=== PATIENT | female | born 1960 | race Caucasian/White ===

== ENCOUNTER 2017-08-27 19:45 | Emergency (ER) | payer OTHER ==
[2017-08-27] MEDS ORDERED: Albuterol 0.083% 2.5 MG/3 ML Neb Soln NEB ONE (21:31)
[2017-08-27] MEDS ORDERED: Levofloxacin 250 MG Tab PO ONE (22:29)
[2017-08-27] MEDS ORDERED: Levofloxacin 500 MG Tab ONE (22:47)
--- NOTE | 2017-08-27 22:54 | EDM.PDOC ---
ED HPI GENERAL MEDICAL PROBLEM - General Chief Complaint: Respiratory Problem Stated Complaint: SOB Time Seen by Provider: 08/27/17 20:20 Source of Information: Reports: Patient History Limitations: Reports: No Limitations - History of Present Illness INITIAL COMMENTS - FREE TEXT/NARRATIVE: pt has been very sob for the last 2 days. Tonight when she was walking up the ramp to the hosp she just could not catch her breath. She does have a inhaler at home that she uses. Onset: Gradual, Other (last 2 days. ) Duration: Hour(s):, Getting Worse Location: Reports: Chest Associated Symptoms: Reports: Shortness of Breath - Related Data Allergies Allergy/AdvReac Type Severity Reaction Status Date / Time cephalexin [From Keflex] Allergy Nausea and Verified 08/27/17 20:33 Vomiting lisinopril Allergy Edema Verified 08/27/17 20:33 nitrofurantoin Allergy Nausea and Verified 08/27/17 20:33 [From Macrobid] Vomiting Home Meds: Home Meds Losartan [Cozaar] 25 mg PO DAILY 08/27/17 [History] Potassium 99 mg PO DAILY 08/27/17 [History] amLODIPine [Norvasc] 2.5 mg PO DAILY 08/27/17 [History] Past Medical History HEENT History: Reports: Impaired Vision Cardiovascular History: Reports: Hypertension Respiratory History: Reports: Bronchitis, Recurrent, Pneumonia, Recurrent Other Respiratory History: ALLERGIES CAUSE LUNG ISSUES Other Genitourinary History: 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: Musculoskeletal History: Reports: Arthritis - Past Surgical History GI Surgical History: Reports: Cholecystectomy, Small Bowel Other GI Surgeries/Procedures: 12 INCHES OF SMALL INTESTINES REMOVED Social & Family History - Tobacco Use Smoking Status *Q: Former Smoker Used Tobacco, but Quit: Yes Month/Year Tobacco Last Used: 26 YEARS AGO - Caffeine Use Caffeine Use: Reports: Coffee - Recreational Drug Use Recreational Drug Use: No ED ROS GENERAL - Review of Systems Review Of Systems: See Below Constitutional: Reports: No Symptoms HEENT: Reports: No Symptoms Respiratory: Reports: Shortness of Breath, Wheezing, Cough, Other ( chest feels tight. ) Cardiovascular: Reports: No Symptoms, Other (heart rate was greater than 100. ) Endocrine: Reports: No Symptoms GI/Abdominal: Reports: No Symptoms : Reports: No Symptoms Musculoskeletal: Reports: No Symptoms Skin: Reports: No Symptoms ED EXAM, GENERAL - Physical Exam Exam: See Below Free Text/Narrative:: pt has had a cough which has not been productive and she has been very sob. She has not had a fever. She is very sob with any activity. Exam Limited By: No Limitations General Appearance: Alert, Mild Distress, Other (pupils are equal and reactive. ) Ears: Normal TMs Nose: Normal Inspection Throat/Mouth: Normal Inspection Head: Atraumatic Neck: Normal Inspection Respiratory/Chest: Decreased Breath Sounds, Crackles Cardiovascular: Regular Rate, Rhythm, Tachycardia GI/Abdominal: Soft, Non-Tender (Female) Exam: Deferred Rectal (Female) Exam: Deferred Back Exam: Normal Inspection Extremities: Pedal Edema, Other ( trace edema,) Neurological: Alert, Normal Cognition Psychiatric: Normal Affect Course - Vital Signs Last Recorded V/S: Last Vital Signs Temp 37.0 C 08/27/17 20:21 Pulse 70 08/27/17 22:23 Resp 16 08/27/17 22:23 BP 165/78 H 08/27/17 22:23 Pulse Ox 94 L 08/27/17 22:23 - Orders/Labs/Meds Orders: Active Orders 24 hr Category Date Time Status EKG Documentation Completion [RC] ASDIRECTED Care 08/27/17 20:33 Active RT Aerosol Therapy [RC] ASDIRECTED Care 08/27/17 21:31 Active Chest 2V [CR] Stat Exams 08/27/17 20:29 Taken Chest wo Cont [CT] Stat Exams 08/27/17 21:50 Taken EKG 12 Lead [EK] Routine Ther 08/27/17 20:33 Ordered Labs: Laboratory Tests 08/27/17 08/27/17 08/27/17 Range/Units 20:50 20:50 20:50 WBC 12.5 H (4.5-11.0) K/uL RBC 5.01 (3.30-5.50) M/uL Hgb 13.5 (12.0-15.0) g/dL Hct 40.9 (36.0-48.0) % MCV 82 (80-98) fL MCH 27 (27-31) pg MCHC 33 (32-36) % Plt Count 316 (150-400) K/uL Neut % (Auto) 64 (36-66) % Lymph % (Auto) 27 (24-44) % [place] % (Auto) 7 H (2-6) % Eos % (Auto) 2 (2-4) % Baso % (Auto) 1 (0-1) % D-Dimer, Quantitative 218 (0.0-400.0) ng/mL Sodium 144 (140-148) mmol/L Potassium 3.6 (3.6-5.2) mmol/L Chloride 107 (100-108) mmol/L Carbon Dioxide 25 (21-32) mmol/L Anion Gap 12.5 (5.0-14.0) mmol/L BUN 13 (7-18) mg/dL Creatinine 0.8 (0.6-1.0) mg/dL Est Cr Clr Drug Dosing 71.76 mL/min Estimated GFR (MDRD) > 60 (>60) Glucose 117 H (74-106) mg/dL Calcium 9.0 (8.5-10.1) mg/dL Total Bilirubin 0.6 (0.2-1.0) mg/dL AST 16 (15-37) U/L ALT 27 (12-78) U/L Alkaline Phosphatase 117 H (46-116) U/L C-Reactive Protein (0.0-0.3) mg/dL NT-Pro-B Natriuret Pep (5-125) pg/mL Total Protein 7.2 (6.4-8.2) g/dL Albumin 3.6 (3.4-5.0) g/dL Globulin 3.6 H (2.3-3.5) g/dL Albumin/Globulin Ratio 1.0 L (1.2-2.2) 08/27/17 08/27/17 Range/Units 21:34 21:48 WBC (4.5-11.0) K/uL RBC (3.30-5.50) M/uL Hgb (12.0-15.0) g/dL Hct (36.0-48.0) % MCV (80-98) fL MCH (27-31) pg MCHC (32-36) % Plt Count (150-400) K/uL Neut % (Auto) (36-66) % Lymph % (Auto) (24-44) % [place] % (Auto) (2-6) % Eos % (Auto) (2-4) % Baso % (Auto) (0-1) % D-Dimer, Quantitative (0.0-400.0) ng/mL Sodium (140-148) mmol/L Potassium (3.6-5.2) mmol/L Chloride (100-108) mmol/L Carbon Dioxide (21-32) mmol/L Anion Gap (5.0-14.0) mmol/L BUN (7-18) mg/dL Creatinine (0.6-1.0) mg/dL Est Cr Clr Drug Dosing mL/min Estimated GFR (MDRD) (>60) Glucose (74-106) mg/dL Calcium (8.5-10.1) mg/dL Total Bilirubin (0.2-1.0) mg/dL AST (15-37) U/L ALT (12-78) U/L Alkaline Phosphatase (46-116) U/L C-Reactive Protein 1.30 H (0.0-0.3) mg/dL NT-Pro-B Natriuret Pep 21 (5-125) pg/mL Total Protein (6.4-8.2) g/dL Albumin (3.4-5.0) g/dL Globulin (2.3-3.5) g/dL Albumin/Globulin Ratio (1.2-2.2) Meds: Medications Discontinued Medications Generic Name Dose Route Start Last Admin Trade Name [place] PRN Reason Stop Dose Admin Albuterol 2.5 mg 08/27/17 21:31 08/27/17 21:37 Proventil Neb Soln NEB 08/27/17 21:32 2.5 mg ONETIME ONE Administration Levofloxacin 500 mg 08/27/17 22:29 08/27/17 22:51 Levaquin PO 08/27/17 22:30 Not Given ONETIME ONE Levofloxacin Confirm 08/27/17 22:47 08/27/17 22:51 Levaquin Administered 08/27/17 22:48 500 mg Dose Administration 500 mg .ROUTE .STK-MED ONE - Re-Assessments/Exams Free Text/Narrative Re-Assessment/Exam: 08/27/17 23:22 chest shows a bilateral infiltrat.e The cat scan shows mild copd. She is a nonsmoker. Her wbc is mildly elevated. Her ddimer was neg. Departure - Departure Time of Disposition: 22:51 Disposition: Home, Self-Care 01 Condition: Fair Clinical Impression: Bilateral pneumonia, Chronic lung disease - Discharge Information Instructions: Community-Acquired Pneumonia, Adult Referrals: PCP,None [Primary Care Provider] - Forms: ED Department Discharge Care Plan Goals: push fluids, cool mist humidifier, use inhaler 2 puffs qid-- has this at home, levoquin 500mg daily, appt with usual Dr In 1 week. to recheck pneumonia, ssend a copy odf the disc with the pt and a copy of the cat scan report. - My Orders Last 24 Hours: My Active Orders 08/27/17 20:29 Chest 2V [CR] Stat 08/27/17 20:33 EKG Documentation Completion [RC] ASDIRECTED EKG 12 Lead [EK] Routine 08/27/17 21:31 RT Aerosol Therapy [RC] ASDIRECTED 08/27/17 21:50 Chest wo Cont [CT] Stat - Assessment/Plan Last 24 Hours: My Active Orders 08/27/17 20:29 Chest 2V [CR] Stat 08/27/17 20:33 EKG Documentation Completion [RC] ASDIRECTED EKG 12 Lead [EK] Routine 08/27/17 21:31 RT Aerosol Therapy [RC] ASDIRECTED 08/27/17 21:50 Chest wo Cont [CT] Stat
--- NOTE | 2017-08-28 09:45 | CR ---
Chest 2V FINDINGS: The heart and vascular structures are normal in appearance. No infiltrates or effusions are demonstrated. The skeletal structures are unremarkable. IMPRESSION: Negative exam.
== END 2017-08-27 23:27 | disposition home or self-care (01) ==
LOC: JP.ED 19:45
DX: J18.9 Pneumonia, unspecified organism (principal); J98.4 Other disorders of lung; I10 Essential (primary) hypertension; Z87.891 Personal history of nicotine dependence; Z88.1 Allergy status to other antibiotic agents; Z88.8 Allergy status to other drugs, medicaments and biological substances; Z79.899 Other long term (current) drug therapy
CPT/HCPCS: 36415; 71046; 71250; 80053; 83880; 85025; 85379; 86140; 93005; 94640; 99285; A9270

== ENCOUNTER 2022-11-05 13:22 | Emergency (ER) | payer MEDICARE, OTHER ==
[2022-11-05] MEDS ORDERED: Ondansetron 4 MG/2 ML SDV IVPUSH ONE (15:28)
[2022-11-05] MEDS ORDERED: Sodium Chloride 0.9% 1,000 ML IV SCH (15:30)
[2022-11-05 15:42] LABS: BASOPHILS ABSOLUTE AUTO 0.04 K/uL (0.00-0.10); BASOPHILS PERCENT AUTO 0.3 % (0.1-1.3); EOSINOPHILS PERCENT AUTO 0.2 % (0.0-5.4); HEMATOCRIT 42.7 % (34.3-46.0); HEMOGLOBIN 14.7 g/dL (11.2-15.5); IMMATURE GRAN ABSOLUTE AUTO 0.06 K/uL (0.00-0.23); IMMATURE GRAN PERCENT AUTO 0.5 % (0.0-0.7); LYMPHOCYTES ABSOLUTE AUTO 0.53 K/uL (0.8-3.3); LYMPHOCYTES PERCENT AUTO 4.3 % (11.4-47.7); MEAN CORPUSCULAR HEMOGLOBIN 29.2 pg (31.6-35.5); MEAN CORPUSCULAR HGB CONC 34.4 g/dL (31.6-35.5); MEAN CORPUSCULAR VOLUME 84.7 fL (81.4-99.0); MONOCYTES ABSOLUTE AUTO 0.69 K/uL (0.20-0.90); MONOCYTES PERCENT AUTO 5.6 % (3.3-12.6); NEUTROPHILS ABSOLUTE AUTO 10.95 K/uL (1.0-7.6); NEUTROPHILS PERCENT AUTO 89.1 % (40.0-78.1); PLATELET COUNT,PLT 204 K/uL (130-375); RED BLOOD CELL COUNT 5.04 M/uL (3.77-5.24); WHITE BLOOD CELL COUNT,WBC 12.3 K/uL (3.2-11.0)
[2022-11-05 15:44] LABS: EOSINOPHILS ABSOLUTE AUTO 0.02 K/uL (0.00-0.40)
[2022-11-05 16:03] LABS: A/G RATIO 1.1 (1.2-2.2); ALANINE AMINOTRANSFERASE,ALT 20 U/L (12-78); ALBUMIN 3.7 g/dL (3.4-5.0); ALKALINE PHOSPHATASE 95 U/L (46-116); ASPARTATE AMNIOTRANSFERASE,AST 21 U/L (15-37); BILIRUBIN TOTAL 1.5 mg/dL (0.2-1.0); BLOOD UREA NITROGEN,BUN 15 mg/dL (7-18); CALCIUM 9.3 mg/dL (8.5-10.1); CARBON DIOXIDE,CO2 25 mmol/L (21-32); CHLORIDE,CL 103 mmol/L (100-108); CREATININE 0.9 mg/dL (0.6-1.0); EST CRCL DRUG DOSING (CG) 59.89 mL/min; ESTIMATED GFR 72 mL/min (>60); GLUCOSE RANDOM 107 mg/dL (74-106); POTASSIUM,K 3.4 mmol/L (3.6-5.2); PROTEIN TOTAL,TP 7.2 g/dL (6.4-8.2); SODIUM,NA 140 mmol/L (140-148)
[2022-11-05 16:06] LABS: ANION GAP 15.4 mmol/L (5.0-14.0)
[2022-11-05 16:35] LABS: APPEARANCE,URINE CLOUDY (CLEAR); BILIRUBIN,URINE NEGATIVE (NEGATIVE); COLOR,URINE YELLOW (YELLOW); GLUCOSE,URINE NEGATIVE (NEGATIVE); KETONES,URINE 15 mg/dL (NEGATIVE); LEUKOCYTE ESTERASE,URINE SMALL (NEGATIVE); NITRITE,URINE NEGATIVE (NEGATIVE); OCCULT BLOOD,URINE NEGATIVE (NEGATIVE); PH,URINE 5.5 (5.0-8.0); PROTEIN,URINE NEGATIVE (NEGATIVE); UROBILINOGEN,URINE 0.2 EU/dL (0.2-1.0)
[2022-11-05 16:37] LABS: AMORPHOUS SEDIMENT,URINE NOT SEEN; BACTERIA,URINE MANY; EPITHELIAL CELLS,URINE MANY; RBC,URINE 0-5 (0-5)
[2022-11-05 16:38] LABS: MUCUS,URINE MODERATE
[2022-11-05] MEDS ORDERED: Magnesium Oxide 400 MG Tab PO ONE (16:40)
== END 2022-11-05 18:21 | disposition home or self-care (01) ==
LOC: JP.ED 13:22
DX: E86.0 Dehydration (principal); E83.42 Hypomagnesemia; N39.0 Urinary tract infection, site not specified; I10 Essential (primary) hypertension; E11.9 Type 2 diabetes mellitus without complications; Z88.1 Allergy status to other antibiotic agents; Z88.8 Allergy status to other drugs, medicaments and biological substances; Z79.899 Other long term (current) drug therapy
CPT/HCPCS: 36415; 71045; 80053; 81001; 82947; 83735; 83880; 84484; 85025; 87086; 93005; 96361; 96374; 99284; A9270; J2405; J7030